=== PATIENT | female | born 1965 | race Caucasian/White ===

== ENCOUNTER 2021-02-08 18:51 | Emergency (ER) | payer SELFPAY ==
[2021-02-08 18:52] VITALS: BP 174/74; PULSE 82; RESP 16; TEMP 36.7; O2SAT 100; BMI 34.3
--- NOTE | 2021-02-08 19:10 | XR_ITS ---
PROCEDURE INFORMATION: Exam: XR Left Elbow Exam date and time: 02/08/2021 7:10 PM Age: 55 years old Clinical indication: Injury or trauma; Fall; Blunt trauma (contusions or hematomas); Elbow; Left; Patient HX: Patient fell while walking dog. TECHNIQUE: Imaging protocol: XR Left elbow. Views: 3 or more views. COMPARISON: No relevant prior studies available. FINDINGS: Bones/joints: Normal. Soft tissues: Normal. IMPRESSION: No acute findings.
--- NOTE | 2021-02-08 19:10 | XR_ITS ---
PROCEDURE INFORMATION: Exam: XR Left Shoulder Exam date and time: 02/08/2021 7:10 PM Age: 55 years old Clinical indication: Injury or trauma; Fall; Blunt trauma (contusions or hematomas); Patient HX: Patient fell while walking dog. Left shoulder/left clavicle pain. ; Additional info: Fall; Poss dislocation TECHNIQUE: Imaging protocol: XR Left shoulder. Views: 2 or more views. COMPARISON: No relevant prior studies available. FINDINGS: Bones/joints: Significantly displaced fracture of mid left clavicle with distal fragment depressed up to 2.7 cm. Soft tissues: Normal. IMPRESSION: Significantly displaced fracture of mid left clavicle with distal fragment depressed up to 2.7 cm.
--- NOTE | 2021-02-08 19:11 | HMH.EDGENADL ---
ED Disposition Clinical Impression: Injury of left shoulder Qualifiers: Encounter type: initial encounter Qualified Code(s): S49.92XA - Unspecified injury of left shoulder and upper arm, initial encounter Fracture of left clavicle with nonunion Qualifiers: Clavicle location: shaft Fracture type: closed Fracture alignment: displaced Qualified Code(s): S42.022K - Displaced fracture of shaft of left clavicle, subsequent encounter for fracture with nonunion Disposition: Home, Self-Care Condition on Discharge: Good Instructions: How to Use a Sling, DI for Clavicle Fracture-Adult Additional Instructions: Use sling until seen by orthopedic doctor. Ice 20 minutes 4-5 times a day as needed for pain or swelling. Follow-up with Dr. Marie, orthopedics, next week. Call for appointment. Tylenol 3 as needed for pain. Additional instructions for CONTROLLED SUBSTANCES: You have been prescribed a medication that is a controlled substance. Controlled substances include pain medications known as opiates and sedative nerve medications known as benzodiazepines. Tramadol, fioricet, and gabapentin are also controlled substances. Some common opiates include: Codeine (such as Tylenol #3) Hydrocodone (Vicodin, Lortab, Lorcet, Echo) Oxycodone (Percocet, Percodan, Oxycodone, Oxy IR) Some common benzodiazepines include: Diazepam (Valium) Lorazepam (Ativan) Alprazolam (Xanax) Clonazepam (Klonopin) Oxazepam (Serax) All of these controlled substances are highly addictive and frequently abused. Misuse can and frequently does lead to addiction as well as overdose and . Medication should be stored in a locked cabinet or other secure storage unit. Do not store the medication in a motor vehicle. Short term supplies, 3 days or less, are prescribed because of the highly addictive nature of the medication. Any of the controlled substance medication NOT taken should be disposed of properly and NOT SAVED. The recommended method of disposing of unused medications is: Place the medicines in a sealable plastic bag. If the medicine is a solid, crush it or add water to dissolve it. Add something undesirable (cat litter, coffee grounds, etc.) Dispose of sealed bag in household trash Do not flush or pour unused medicines down a sink or drain. Controlled substances should not be shared, given away or sold. Because of the addictive nature and frequent abuse, these medications are sometimes stolen. These medications should be kept in a safe place where they cannot be stolen. Do not keep them in your car or purse. Lost or stolen prescriptions for controlled substances WILL NOT BE REFILLED in this emergency department, regardless of whether a police report was filed. Referrals: Provider,MD Erum [Primary Care Provider] - Christos Marie MD [Staff Physician] - (call tomorrow to schedule appointment to see within 1 week.) - Critical Care Critical Care Time: No Attestation: On 02/08/21, the high probability of a clinically significant, sudden or life threatening deterioration of the following system(s) required my full and direct attention, intervention and personal management. The time I documented below is in addition to time spent performing reported procedures but includes the following listed in this critical care notation. Medical Decision Making - Sudeep Inquiry Pt receiving controlled substance: Yes Sudeep was queried for this patient: Yes Risks and benefits of using a controlled substance: were discussed with pt by me Vital Signs: 02/08/21 18:52 Temperature 98.1 F Temperature Source Oral Pulse Rate [Right] 82 Respiratory Rate 16 Blood Pressure [Right Arm] 174/74 H Blood Pressure Mean [Right Arm] 107 Blood Pressure Source [Right Arm] Automatic Cuff Blood Pressure Position [Right Arm] Sitting 02 Sat by Pulse Oximetry 100 Oxygen Delivery Method Room Air Orders (Tests/Meds): ED MEDICATIONS Discontinued Med
--- NOTE | 2021-02-08 19:11 | PC.NURSE ---
Pt arm placed in position of comfort with blankets and ice pack applied
--- NOTE | 2021-02-08 19:20 | XR_ITS ---
PROCEDURE INFORMATION: Exam: XR Left Clavicle, Complete Exam date and time: 02/08/2021 7:20 PM Age: 55 years old Clinical indication: Injury or trauma; Fall; Blunt trauma (contusions or hematomas); Injury details: Severe trauma to left clavicle, patient got jerked by dog while leading dog on leash. Patient fell onto left shoulder. TECHNIQUE: Imaging protocol: XR Left clavicle complete. Views: Any number of views. COMPARISON: CR XR SHOULDER LT MIN 2V 02/08/2021 7:24 PM FINDINGS: Bones/joints: Displaced fracture of the mid left clavicle with the distal portion depressed 2.3 cm. Soft tissues: Normal. IMPRESSION: Displaced fracture of the mid left clavicle with the distal portion depressed 2.3 cm.
[2021-02-08 20:40] VITALS: BP 154/76; PULSE 80; RESP 16; TEMP 36.7; O2SAT 100
== END 2021-02-08 20:41 | disposition home or self-care (01) ==
PROVIDERS: Emergency Provider Emergency Medicine
DX: S42.022A Displaced fracture of shaft of left clavicle, initial encounter for closed fracture (principal); W01.0XXA Fall on same level from slipping, tripping and stumbling without subsequent striking against object, initial encounter; Y93.K1 Activity, walking an animal; Y92.89 Other specified places as the place of occurrence of the external cause
CPT/HCPCS: 73000; 73030; 73080; 99283

== ENCOUNTER 2021-03-29 18:00 | Emergency (ER) | payer SELFPAY ==
[2021-03-29 18:30] VITALS: BP 141/90; PULSE 94; RESP 18; TEMP 36.8; O2SAT 100; BMI 38.5
--- NOTE | 2021-03-29 19:19 | HMH.EDUTC ---
[facility] [place] Disposition Clinical Impression: Otitis media Qualifiers: Otitis media type: unspecified Laterality: right Qualified Code(s): H66.91 - Otitis media, unspecified, right ear Disposition: Home, Self-Care Condition on Discharge: Good Instructions: Middle Ear Infection, Amoxicillin Additional Instructions: *Monitor Temp, Over the counter Motrin or Tylenol as directed/as needed Tylenol every 4 hours and Motrin every 6 hours (as long as your family doctor has told you that you can take it) for fever or pain. and straight to ER if unable to lower temp less than 101.0 after medication given *Warm salt water gargles may help to soothe the throat *Throat Lozenges *Warm fluids like tea with honey may help to soothe the throat *Sleep elevated *Humidifier/Vaporizer *Flonase 2 sprays in each nostril daily but be aware that it may take 2-3 days before you notice improvement Follow up IMMEDIATELY for new or worsening symptoms or no Noticeable improvement over the next 48-72 hours. 911 for difficulty breathing or swallowing Prescriptions: Amoxicillin [Amoxicillin 500mg Cap] 500 mg PO TID #30 cap Transmission Status: Pending to [id number] Fluticasone Propionate [Flonase 50mcg nasal spray 16gm] 1 spr NS DAILY #1 each Transmission Status: Pending to [id number] Referrals: Provider,Referral, MD [Primary Care Provider] - As needed Forms: Work/School Release Medical Decision Making - Sudeep Inquiry Pt receiving controlled substance: No Sudeep was queried for this patient: No Vital Signs: 03/29/21 18:30 Temperature 98.2 F Temperature Source Oral Pulse Rate [Right Brachial] 94 H Respiratory Rate 18 Blood Pressure [Right Arm] 141/90 H Blood Pressure Mean [Right Arm] 107 Blood Pressure Source [Right Arm] Automatic Cuff Blood Pressure Position [Right Arm] Sitting 02 Sat by Pulse Oximetry 100 Oxygen Delivery Method Room Air [facility] [place] HPI - General Stated complaint: R Ear pain Time Seen by Provider: 03/29/21 19:19 Mode of Arrival: Ambulatory Source of Information: Patient Limitations: No Limitations Description of Symptoms (Recalled from Triage Doc. by RN): PATIENT C/O RIGHT EAR PAIN SINCE YESTERDAY HEENT Symptoms (Recalled from RN notes): Yes Resp Symptoms (Recalled from RN notes): No Skin Symptoms (Recalled from RN notes): No MS Symptoms (Recalled from RN notes): No Functional Status (Recalled from RN notes): WNL - History of Present Illness Provider Complaint: Patient states that she has been having pain in her right ear for several days that got worse since yesterday States that since yesterday she has been having pressure like feeling in her ear and throbbing pain States that today it has continued to get worse so she came in to get it checked out - Related Data Previous Rx's Medication Instructions Recorded Amoxicillin [Amoxicillin 500mg 500 mg PO TID #30 cap 03/29/21 Cap] Fluticasone Propionate [Flonase 1 spr NS DAILY #1 each 03/29/21 50mcg nasal spray 16gm] Allergies Allergy/AdvReac Type Severity Reaction Status Date / Time No Known Allergies Allergy Verified 02/08/21 19:10 - Worker's Comp Is this a Worker's Comp case?: No [facility] History - Hepatitis A Screen Drug use history?: No High risk sexual behaviors?: No History of sexually transmitted infection?: No Currently employed?: No Childcare worker?: No Do you have indoor plumbing?: Yes Do you have electricity?: Yes Attestation statement:: This patient has been screened for Hepatitis A risk factors. I have reviewed the patient's past medical history: Yes Medical History: Denies:: Cancer, Diabetes Mellitus Type 1, Diabetes Mellitus Type 2, Hypertension, MRSA Other Surgeries: Yes: Tubal Ligation Amputation: No Fractures: No - Social History Smoking Status: Never smoker Alcohol Intake: never ROS Obtained: Yes All systems reviewed & no additional complaints, Yes Systems reviewed as appropriate & n
[2021-03-29 19:25] VITALS: BP 131/78; PULSE 64; RESP 18; TEMP 36.9; O2SAT 99
== END 2021-03-29 19:30 | disposition home or self-care (01) ==
PROVIDERS: Emergency Provider Nurse Practitioner
DX: H66.91 Otitis media, unspecified, right ear (principal)
CPT/HCPCS: 99202; G0463

== ENCOUNTER → 2021-05-17 12:28 | Outpatient (CLI) | payer OTHER, SELFPAY | PROVIDERS: Visit Provider Nurse Practitioner | DX: Z20.822 Contact with and (suspected) exposure to COVID-19 (principal) | CPT/HCPCS: C9803; U0003; U0005 ==

== ENCOUNTER 2021-09-24 09:48 | Emergency (ER) | payer SELFPAY ==
--- NOTE | 2021-09-24 09:56 | XR_ITS ---
PROCEDURE INFORMATION: Exam: XR Lumbosacral Spine Exam date and time: 09/24/2021 10:12 AM Age: 55 years old Clinical indication: Injury or trauma; Fall; Blunt trauma (contusions or hematomas); Injury date: 09/21/21; Additional info: Lower back pain- fell out of golf cart TECHNIQUE: Imaging protocol: XR of the lumbosacral spine. Views: 2 or 3 views. COMPARISON: No relevant prior studies available. FINDINGS: Bones/joints: There is no evidence of acute fracture.There is no evidence of malalignment or dislocation. No intervertebral disc space narrowing Soft tissues: Unremarkable. IMPRESSION: There is no evidence of acute fracture.There is no evidence of malalignment or dislocation.
--- NOTE | 2021-09-24 09:58 | HMH.EDUTC ---
[facility] [place] Disposition Clinical Impression: Low back pain Qualifiers: Chronicity: acute Back pain laterality: unspecified Sciatica presence: with sciatica Sciatica laterality: sciatica of right side Qualified Code(s): M54.41 - Lumbago with sciatica, right side Contusion of lower back Qualifiers: Encounter type: initial encounter Qualified Code(s): S30.0XXA - Contusion of lower back and pelvis, initial encounter Disposition: Home, Self-Care Condition on Discharge: Good Instructions: Low Back Pain, DI for Low Back Pain Additional Instructions: Go home and rest. It would be best if you rested tomorrow too. No heavy lifting. No twisting. Take the oral medications as directed. The muscle relaxer (cyclobenzaprine--Flexeril) will make you drowsy, so don't drive or operate heavy machinery after taking it. Don't start the oral steroids (medrol dose pack) until tomorrow, since you had the shots in here today. Follow up with your regular doctor. GO TO THE ER FOR ANY WORSENING SYMPTOMS OR CONCERN, ESPECIALLY BOWEL OR BLADDER ISSUES, SADDLE AREA NUMBNESS, FEVER, ETC Prescriptions: Cyclobenzaprine HCl [Cyclobenzaprine 10mg Tab] 10 mg PO BIDP PRN #20 tab PRN Reason: Muscle Spasm Transmission Status: Received by [id number] methylPREDNISolone [Medrol] 4 mg PO DIRECTED 6 Days #21 packet Transmission Status: Received by [id number] Referrals: Provider,Referral, MD [Primary Care Provider] - Forms: Work/School Release Time of Disposition: 11:18 Medical Decision Making - Medical Records Medical records reviewed: No: I reviewed the patient's medical records. - Sudeep Inquiry Pt receiving controlled substance: No Vital Signs: 09/24/21 10:06 09/24/21 11:24 Temperature 98.1 F 98.1 F Temperature Source Oral Pulse Rate 78 Pulse Rate [Left Radial] 78 Respiratory Rate 19 19 Blood Pressure 130/95 H Blood Pressure [Right Arm] 130/103 H Blood Pressure Mean [Right Arm] 112 02 Sat by Pulse Oximetry 99 Orders (Tests/Meds): ED MEDICATIONS Discontinued Medications Generic Name Dose Route Start Last Admin Trade Name Freq PRN Reason Stop Dose Admin Ketorolac Tromethamine 60 mg 09/24/21 10:54 09/24/21 11:01 Ketorolac 60mg/2ml Vial IM 09/24/21 10:55 60 mg ONCE ONE Administration Methylprednisolone Sodium Succinate 125 mg 09/24/21 10:54 09/24/21 11:01 Methylprednisolone Sod Succ 125mg Vial IM 09/24/21 10:55 125 mg ONCE ONE Administration [facility] [place] HPI - General Stated complaint: fall 09/21 back pain Time Seen by Provider: 09/24/21 09:58 - History of Present Illness Provider Complaint: She states that for the past 2 days she has had low back pain. - Related Data Previous Rx's Medication Instructions Recorded Amoxicillin [Amoxicillin 500mg 500 mg PO TID #30 cap 03/29/21 Cap] Fluticasone Propionate [Flonase 1 spr NS DAILY #1 each 03/29/21 50mcg nasal spray 16gm] Cyclobenzaprine HCl 10 mg PO BIDP PRN #20 tab 09/24/21 [Cyclobenzaprine 10mg Tab] methylPREDNISolone [Medrol] 4 mg PO DIRECTED 6 Days #21 09/24/21 packet Allergies Allergy/AdvReac Type Severity Reaction Status Date / Time No Known Allergies Allergy Verified 09/24/21 10:10 [facility] History - Hepatitis A Screen Attestation statement:: This patient has been screened for Hepatitis A risk factors. I have reviewed the patient's past medical history: Yes Medical History: Denies:: Cancer, Diabetes Mellitus Type 1, Diabetes Mellitus Type 2, Hypertension, MRSA Other Surgeries: Yes: Tubal Ligation Amputation: No Fractures: No - Social History Smoking Status: Never smoker Alcohol Intake: never ROS Obtained: Yes All systems reviewed & no additional complaints - Constitutional Constitutional: Denies chills, Denies fever(s) - Musculoskeletal Musculoskeletal: Reports as per HPI - Integumentary/Breasts Skin/Breast: Denies redness, Denies rash, Denies wounds -
[2021-09-24 10:06] VITALS: BP 130/103; PULSE 78; RESP 19; TEMP 36.7; O2SAT 99; BMI 40.4
[2021-09-24 11:24] VITALS: BP 130/95; PULSE 78; RESP 19; TEMP 36.7
== END 2021-09-24 11:24 | disposition home or self-care (01) ==
PROVIDERS: Emergency Provider Nurse Practitioner Family
DX: M54.41 Lumbago with sciatica, right side (principal); S30.0XXA Contusion of lower back and pelvis, initial encounter; Z79.51 Long term (current) use of inhaled steroids; Z79.52 Long term (current) use of systemic steroids; Z79.899 Other long term (current) drug therapy
CPT/HCPCS: 72100; 96372; 99213; G0463